=== PATIENT | male | born 1980 | race Caucasian/White ===

== ENCOUNTER 2019-08-04 16:07 | Emergency (ER) | payer OTHER ==
[2019-08-04 16:18] VITALS: BP 128/71
[2019-08-04] MEDS ORDERED: POLYMYXIN B SULFATE/TMP OPH SOLN (10 ML/ER DISP) OD ONE (17:14)
--- NOTE | 2019-08-04 17:18 | ER Document Report ---
HPI - HPI Time Seen by Provider: 08/04/19 17:10 Pain Level: 1 Context: Patient is a 38-year-old male who presents the emergency department with a chief complaint of right eye erythema, purulent drainage, and slightly blurred vision. Patient states that he was stung by an insect in his right eye yesterday. Patient states that since then, he has had purulent drainage from his eye. Denies any shortness of breath or difficulty breathing. - ROS Systems Reviewed and Negative: Yes All other systems reviewed and negative - CONSTITUTIONAL Constitutional: DENIES: Fever, Chills - EENT EENT: REPORTS: Eye problems - Rt Eye purulent drainage - NEURO Neurology: REPORTS: Vision blurred - from drainage. DENIES: Headache, Weakness, Dizzinesss / Vertigo - RESPIRATORY Respiratory: DENIES: Trouble Breathing, Coughing - MUSCULOSKELETAL Musculoskeletal: DENIES: Extremity pain - DERM Skin Color: Normal Skin Problems: None Past Medical History - General Information source: Patient - Social History Smoking Status: Former Smoker Frequency of alcohol use: None Drug Abuse: None Family History: None Patient has homicidal ideation: No GI Medical History: Reports: Hx Gastroesophageal Reflux Disease Psychiatric Medical History: Reports: Hx Bipolar Disorder, Hx Depression Past Surgical History: Reports: Hx Appendectomy, Hx Orthopedic Surgery - left shoulder right knee left hand - Immunizations Hx Diphtheria, Pertussis, Tetanus Vaccination: Yes Vertical Provider Document - CONSTITUTIONAL Agree With Documented VS: Yes Exam Limitations: No Limitations General Appearance: No Apparent Distress - INFECTION CONTROL TRAVEL OUTSIDE OF THE [place] IN LAST 30 DAYS: No - HEENT HEENT: Atraumatic, Conjuctival Injection - Right eye with purulent drainage, Normocephalic, PERRLA. negative: Pharyngeal Exudate, Pharyngeal Tenderness, Pharyngeal Erythema - NECK Neck: Normal Inspection - RESPIRATORY Respiratory: No Respiratory Distress - CARDIOVASCULAR Cardiovascular: Regular Rate, Regular Rhythm Pulses: Normal: Radial - MUSCULOSKELETAL/EXTREMETIES Musculoskeletal/Extremeties: FROM - NEURO Level of Consciousness: Awake, Alert, Appropriate Motor/Sensory: No Motor Deficit, No Sensory Deficit - DERM Integumentary: Warm, Dry, No Rash Course - Re-evaluation Re-evalutation: 08/04/19 Exam is consistent with bacterial conjunctivitis. No foreign body noted. I suspect that he has bacterial conjunctivitis from rubbing his eye throughout the day. Patient notes that the blurry vision is due to the purulent drainage in his eyes. Will start him on Polytrim eyedrops. PERRL, conjunctiva normal, all extraocular movements intact, sclera nonicteric; negative Fallon sign, negative for globe rupture. Follow-up precautions were given. Verbal discharge instructions were given to the patient. They verbalized understanding. They are stable for discharge. - Vital Signs Vital signs: Temp Pulse Resp BP Pulse Ox 98.7 F 86 16 128/71 H 96 08/04/19 17:08 08/04/19 16:16 08/04/19 16:16 08/04/19 16:16 08/04/19 16:16 Discharge - Discharge Clinical Impression: Conjunctivitis Qualifiers: Conjunctivitis type: acute Acute conjunctivitis type: bacterial Laterality: right Qualified Code(s): H10.31 - Unspecified acute conjunctivitis, right eye Insect sting Qualifiers: Encounter type: initial encounter Injury intent: accidental or unintentional Qualified Code(s): T63.481A - Toxic effect of venom of other arthropod, accidental (unintentional), initial encounter Condition: Stable Disposition: HOME, SELF-CARE Instructions: Conjunctivitis ([facility]), Eyedrop Use ([facility]) Additional Instructions: You were seen today in the emergency department for right eye drainage and redness. You have conjunctivitis, commonly known as pinkeye. Place the Polytrim eyedrops to your right eye 4 times a day for 7 days. Use warm compresses if needed. You can also take [id number] Benadryl for any itchiness. Follow-up with your primary care provider as needed. Referrals: THOMAS FERNANDEZ PA-C [Primary Care Provider] - Follow up as needed
== END 2019-08-04 17:23 | disposition home or self-care (01) ==
LOC: ER 16:07
DX: T63.481A Toxic effect of venom of other arthropod, accidental (unintentional), initial encounter (principal); H10.31 Unspecified acute conjunctivitis, right eye; H53.8 Other visual disturbances; X58.XXXA Exposure to other specified factors, initial encounter
CPT/HCPCS: 99281; J3490